=== PATIENT | male | born 1955 | race Hispanic/Latino ===

== ENCOUNTER → 2018-04-04 | Day surgery (SDC) | payer BC ==
[~2018-04-04] MED LIST: AMLODIPINE BESY10 MG PO; CRESTOR10 MG PO; FENTANYL CITRATE/PF 100MCG/2 ML INJ ONE; FINASTERIDE5 MG PO; LIDOCAINE HCL 2% LOCAL INJ 5 ML SDV VIAL INJ ONE; LISINOPRIL40 MG PO; METOPROLOL SUC100 MG PO; PROPOFOL IV EMULSION 10 MG/ML 50 ML VIAL ONE; TERAZOSIN HCL5 MG PO
--- OUTSIDE RECORDS SUMMARY | 2018-04-04 06:27 | XMS REPORT | Clinical Summary ---
Author Author [facility] Organization [facility] Address Unknown Phone Unavailable Care Team Providers Care Patient Services Manager Name Role Phone Jin Quiroz MD PCP Allergies No Known Allergies Medications End Date Status Medication Sig Dispensed Refills Start Date Active furosemide (LASIX) 20 mg Take 20 mg by 3 tablet mouth daily. 7 01/16/2019 Active amLODIPine (NORVASC) 10 Take 1 tablet 90 tablet 3 mg tablet (10 mg total) 8 by mouth daily. Active metoprolol tartrate TAKE ONE 180 tablet 3 (LOPRESSOR) 100 mg tablet TABLET BY 8 MOUTH TWICE DAILY Active aspirin (ECOTRIN) 81 MG Take 81 mg by 0 enteric coated tablet mouth daily. Active terazosin (HYTRIN) 5 MG Take 1 90 capsule 3 capsule capsule (5 mg 8 total) by mouth nightly. 03/12/2019 Active lisinopril Take 1 tablet 90 tablet 3 (PRINIVIL,ZESTRIL) 40 mg (40 mg total) 8 tablet by mouth daily. 03/12/2019 Active rosuvastatin (CRESTOR) 20 Take 1 tablet 90 tablet 3 MG tablet (20 mg total) 8 by mouth daily. 03/12/2019 Active finasteride (PROSCAR) 5 Take 1 tablet 90 tablet 3 mg tablet (5 mg total) 8 by mouth daily. 09/11/2017 Discontinued vit,anel Take by mouth 0 28-zyir-cfaik ( daily. Take 1 LOW IRON) 27 mg iron- 1 capsule daily mg tablet 01/16/2018 Discontinued amLODIPine (NORVASC) 10 Take 1 tablet 90 tablet 3 mg tablet (10 mg total) 7 by mouth daily. 03/12/2018 Discontinued apixaban (ELIQUIS) 5 mg Take 1 tablet 180 tablet 3 tablet (5 mg total) 7 by mouth 2 (two) times a day. 03/11/2018 Discontinued finasteride (PROSCAR) 5 Take 1 tablet 90 tablet 3 mg tablet (5 mg total) 7 by mouth daily. 03/11/2018 Discontinued lisinopril Take 1 tablet 90 tablet 3 (PRINIVIL,ZESTRIL) 40 mg (40 mg total) 7 tablet by mouth daily. Take 1 tablet daily 09/23/2017 Discontinued lovastatin (MEVACOR) 20 Take 1 tablet 90 tablet 3 MG tablet (20 mg total) 7 by mouth nightly. Take 1 tablet daily 02/27/2018 potassium chloride Take 1 tablet 90 tablet 3 (K-DUR) 20 MEQ CR tablet (20 mEq 7 total) by mouth daily. 03/12/2018 Discontinued terazosin (HYTRIN) 5 MG Take 1 90 capsule 3 capsule capsule (5 mg 7 total) by mouth nightly. 03/05/2018 Discontinued metoprolol tartrate Take 1 tablet 180 tablet 3 (LOPRESSOR) 100 mg tablet (100 mg 7 total) by mouth 2 (two) times a day. Take 1 tablet 2 times daily 09/11/2017 Discontinued furosemide (LASIX) 20 mg TAKE ONE 30 tablet 3 tablet TABLET BY 8 MOUTH ONCE DAILY 03/12/2018 Discontinued lovastatin (MEVACOR) 20 Take 20 mg by 0 MG tablet mouth nightly. 03/12/2018 Discontinued finasteride (PROSCAR) 5 TAKE ONE 30 tablet 11 mg tablet TABLET BY 8 MOUTH ONCE DAILY 03/12/2018 Discontinued lisinopril TAKE ONE 30 tablet 11 (PRINIVIL,ZESTRIL) 40 mg TABLET BY 8 tablet MOUTH ONCE DAILY 03/12/2018 Discontinued potassium chloride Take 10 mEq 0 (KLOR-CON) 10 MEQ CR by mouth tablet daily. Active Problems Problem Noted Date Tibialis tendinitis of left lower extremity 12/19/2016 Left ankle swelling 12/12/2016 Last Assessment & Plan: Xray today. Range of motion preserved. May need ortho as has not resolved for few weeks now. Chronic diastolic congestive heart failure 10/05/2016 Last Assessment & Plan: Likely in the setting of Dissection and now post up. Mildly depressed LVEF. Meds as above. Follow up in 3 weeks, Starting cardiac rehab soon. Epistaxis 10/05/2016 Last Assessment & Plan: Observe for now. Advised not to put kleenex inside the nose just hold pressure. Acute respiratory insufficiency 08/09/2016 Hypercapnia with mixed acid-base disorder 08/09/2016 Hyperglycemia 08/09/2016 Electrolyte abnormality 08/09/2016 Leukemoid reaction 08/09/2016 Postoperative anemia due to acute blood loss 08/09/2016 Last Assessment & Plan: Stable. s/p AVR with Trifecta VAlve 08/09/2016 Last Assessment & Plan: Normal velocity and gradient across the prosthetic valve. s/p Ascending aortic dissecting aneurysm repair 08/09/2016 Atrial fibrillation status post cardioversion 08/09/2016 Last Assessment & Plan: Cardioversions were unsuccessful by reports. However currently in NSR. Discontinue Amio . Will monitor. - Continue apixaban . Essential hypertension 08/08/2016 Last Assessment & Plan: Uncontrolled. Better than last time Cont home logs. Reviewed for this visit Metoprolol was increased to 100 bid by PCP Amlodipine to 10 mg Lasix 40 mg daily . Resume lovastatin Pure hypercholesterolemia 08/08/2016 Benign prostatic hyperplasia with lower urinary tract symptoms 08/08/2016 Dissecting aneurysm of thoracic aorta, [place] type A 08/08/2016 Last Assessment & Plan: Recovering well, Coronaries were not checked before OR since emergency. 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 (HCC); Atrial fibrillation status post cardioversion (HCC); Chronic diastolic congestive heart failure (HCC) 03/12/2018 Office Visit Cardiology Juany Jennings MD Med Refill 03/11/2018 Refill Cardiology Juany Jennings MD Med Refill 03/05/2018 Refill Cardiology Juany Jennings MD Pritchard, Sherry M, RD Pure hypercholesterolemia (Primary Dx); Class 3 severe obesity due to excess calories with body mass index (BMI) of 45.0 to 49.9 in adult, unspecified whether serious comorbidity present (HCC) 01/16/2018 Consult Weight Management Price, Amber, MA Med Refill 01/16/2018 Refill Cardiology Amber Thrasher MA Results 10/30/2017 Telephone Cardiology Juany Jennings MD 10/25/2017 Orders Only Cardiology Juany Jennings MD 09/23/2017 Orders Only Cardiology Juany Jennings MD 09/18/2017 Orders Only Cardiology Juany Jennings MD Coronary artery disease involving tanana coronary artery of tanana heart without angina pectoris (Primary Dx); Dissecting aneurysm of thoracic aorta, [place]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; s/p AVR with Trifecta VAlve; Atrial fibrillation status post cardioversion 09/11/2017 Office Visit Cardiology Danette Roberto MA Chronic combined systolic and diastolic heart failure (Primary Dx) 08/07/2017 Orders Only Cardiology after 04/03/2017 Family History Medical History Relation Name Comments Heart disease Mother Relation Name Status Comments Mother Social History Date Tobacco Use Types Packs/Day Years Used Never Smoker Smokeless Tobacco: Never Used Tobacco Cessation: Counseling Given: No Alcohol Use Drinks/Week oz/Week Comments Yes Occasional Sex Assigned at Date Recorded Not on file Industry Job Start Date Occupation Not on file Not on file Not on file Travel End Travel History Travel Start No recent travel history available. Last Filed Vital Signs Time Taken Vital Sign Reading 03/12/2018 9:42 AM [facility] Blood Pressure 140/80 03/12/2018 9:42 AM [facility] MAN Pulse 60 03/12/2018 9:42 AM [facility] MAN Temperature 36.6 C (97.8 F) - Respiratory Rate - 03/12/2018 9:42 AM [facility] MAN Oxygen Saturation 96% - Inhaled Oxygen - Concentration 03/12/2018 9:42 AM FRONT MAN Weight 137 kg (303 lb) 03/12/2018 9:42 AM FRONT MAN Height 170.2 cm (5' 7") 03/12/2018 9:42 AM FR[facility] MAN Body Mass Index 47.46 Plan of Treatment Care Team Description [place] [address] [place] [address], [address] [place] [address] [phone] 09/10/2018 Office Visit Cardiology Health Maintenance Due Date Last Done Comments COLON CANCER SCREENING 06/23/2005 SHINGLES VACCINES (1 of 06/23/2005 2) INFLUENZA VACCINE 10/24/2017 Implants Device Identifier Shelf Expiration Date Model / Serial / Lot Implanted Type Area Manufactur er 02/22/2018 [id number] / / Lead Pace Ramy Mycrdl Unipol Tmpry Cardiovasc N/A: N/A MED[employer] Streamline - [id number] ar [facility] - Implanted: Qty: 1 on 08/08/2016 by Implants CARDIAC Yassine White MD SRGRY 02/22/2018 [id number] / / Lead Pace Ramy Mycrdl Unipol Tmpry Cardiovasc N/A: N/A MEDTRON[employer] Streamline - [id number] ar [facility] - Implanted: Qty: 1 on 08/08/2016 by Implants CARDIAC Yassine White MD SRGRY 04/17/2020 TFGT 25A / [id number] / [id number] Valve Aortic Hemo Peric Tiss Cardiovasc N/A: N/A ST KIKI W/[place] Tech Cuff 25mm Trifecta - ular STRUCTURAL [id number] Implants HEART Implanted: 08/08/2016 (Quantity not on file) 04/22/2017 [id number] / / [id number] Fibrin Sealant Patch Evarrest - Surgical N/A: N/A ETHICON [id number] Implants; ENDO-SURGE Implanted: 08/09/2016 (Quantity not Expanders; RY on file) Extenders; Surgical Wires 06/20/2020 [id number] / / [place] Perph Vasclr Ptfe [id number] Vascular N/A: N/A BARD 1.65mm - [id number] Graft PERIPHERAL Implanted: Qty: 1 on 08/08/2016 by VASCULAR Yassine White MD 02/22/2021 [id number] / / [id number] Graft Vasclr Gelweave Ante-Sunday Vascular N/A: N/A SULZER Perfsn Side [id number] 28x8mm - Graft [id number] Implanted: Qty: 1 on 08/08/2016 by Yassien White MD 12/21/2020 [id number] / / [id number] [place] Perph Vasclr Ptfe 1.2x10cm Vascular N/A: N/A BARD 1.65mm - [id number] Graft PERIPHERAL Implanted: Qty: 1 on 08/08/2016 by Yassine Greenfield MD 02/20/2021 [id number] / / [id number] [place] Perph Vasclr Ptfe 1.2x10cm Vascular N/A: N/A BARD 1.65mm - [id number] Graft PERIPHERAL Implanted: Qty: 1 on 08/08/2016 by Yassine Greenfield MD 09/20/2020 [id number] / / [id number] [place] Perph Vasclr Ptfe 1.2x10cm Vascular N/A: N/A BARD 1.65mm - [id number] Graft PERIPHERAL Implanted: Qty: 1 on 08/08/2016 by Yassine Greenfield MD Procedures Comments Procedure Name Priority Date/Time Associated Diagnosis CV HOLTER MONITOR GREATER Routine 10/25/2017 THAN 48 HOUR HEMOGLOBIN A1C Routine 09/18/2017 7:35 AM CDT TEST IN QUESTION - NO Routine 09/18/2017 TEST FOR CONTAINER 12:00 AM CDT THYROID STIMULATING Routine 09/18/2017 Coronary artery disease HORMONE 12:00 AM CDT involving tanana coronary artery of tanana heart without angina pectoris B NATRIURETIC PEPTIDE Routine 09/18/2017 Coronary artery disease 12:00 AM CDT involving tanana coronary artery of tanana heart without angina pectoris LIPID PANEL Routine 09/18/2017 Coronary artery disease 12:00 AM CDT involving tanana coronary artery of tanana heart without angina pectoris BASIC METABOLIC PANEL Routine 09/18/2017 Coronary artery disease 12:00 AM CDT involving tanana coronary artery of tanana heart without angina pectoris ECHOCARDIOGRAM 2D Routine 08/09/2017 Chronic combined systolic COMPLETE W MMODE SPECTRAL 4:40 PM CDT and diastolic heart COLOR DOPPLER (84531) failure after 04/03/2017 Results * CV Holter monitor greater than 48 hours (10/25/2017) Narrative Performed At * Hemoglobin A1c (09/18/2017 7:35 AM CDT) Hemoglobin A1C 5.6 <5.7 % of total Hgb [facility] Comment: [place] For the purpose of screening for the presence of diabetes: <5.7% Consistent with the absence of diabetes 5.7-6.4%Consistent with increased risk for diabetes (predi abetes) > or=6.5%Consistent with diabetes This assay result is consistent with a decreased risk of diabetes. Currently, no consensus exists regarding use of hemoglobin A1c for diagnosis of diabetes in children. According to [place] Diabetes Association (ADA) guidelines, hemoglobin A1c <7.0% represents optimal control in non- diabetic patients. Different metrics may apply to specific patient populations. Standards of Medical Care in Diabetes(ADA). Narrative Performed At FASTING: UNKNOWN QUEST Resulting Agency Comment Performing Organization Information: Site ID: A Name: [facility] Address: [address] [place] [phone] Director: Lianne Connelly Performing Organization Address City/[facility]/Zipcode Phone Number [employer] [place] [address] * TEST IN QUESTION - NO TEST FOR CONTAINER (09/18/2017 12:00 AM CDT) TEST IN QUESTION - NO Comment: [facility] TEST FOR CONTAINER NO TEST(S) ARE INDICATED ON [place] THE REQUISITION FOR THE FOLLOWING SPECIMEN(S). SPECIMEN(S) RECEIVED: FROZEN LAVEDER [facility] [place] Comment Comment: [facility] To prevent further delays in [place] testing, please complete information above and fax to [phone] to resolve this order. Resulting Agency Comment Performing Organization Information: Site ID: [id number] Name: [facility] Address: [address] [place] [phone] Director: Lianne Connelly Performing Organization Address [facility]/Zipcode Phone Number [employer] [address] [address] * Thyroid stimulating hormone (09/18/2017 12:00 AM CDT) TSH 4.02 0.40 - 4.50 mIU/L [facility] [place] Specimen Blood Resulting Agency Comment Performing Organization Information: Site ID: [id number] Name: [facility] Address: [address] [place] [phone] Director: Lianne Connelly Performing Organization Address [facility] Cent[facility] Phone Number [facility] [place] [address] * B natriuretic peptide (09/18/2017 12:00 AM CDT) BNP 137 (H) <100 pg/mL [facility] Comment: [place] BNP levels increase with age in the general population with the highest values seen in individuals greater than 75 years of age. Reference: J. Am. Jia. Cardiol. 2002; 40:976-982. Specimen Blood Resulting Agency Comment Performing Organization Information: Site ID: [id number] Name: [facility] Address: [address] [place] [phone] Director: Lianne Connelly Performing Organization Address [facility]osc Phone Number [facility] [place] [address] * Lipid panel (09/18/2017 12:00 AM CDT) Cholesterol, total 170 <200 mg/dL [facility] HDL cholesterol 39 (L) >40 mg/dL [facility] [place] Triglycerides 167 (H) <150 mg/dL [facility] [place] LDL cholesterol 103 (H) mg/dL (calc) [facility] calculated Comment: [place] Reference range: <100 Desirable range <100 mg/dL for primary prevention; <70 mg/dL for patients with CHD or diabetic patients with > or=2 CHD risk factors. LDL-C is now calculated using the Itz-Blayne calculation, which is a validated novel method providing better accuracy than the Friedewald equation in the estimation of LDL-C. Itz GOFF et al. ANA. 2013;310(19): 2540-1399 (http://education.[employer].com/faq/BTM564) Cholesterol/HDL ratio 4.4 <5.0 (calc) [facility] [place] Non-HDL cholesterol 131 (H) <130 mg/dL (calc) [facility] Comment: [place] For patients with diabetes plus 1 major ASCVD risk factor, treating to a non-HDL-C goal of <100 mg/dL (LDL-C of <70 mg/dL) is considered a therapeutic option. Specimen Blood Resulting Agency Comment Performing Organization Information: Site ID: [id number] Name: [facility] Address: [address] [place] [phone] Director: Lianne Connelly Performing Organization Address [facility] [place] [address] * Basic metabolic panel (09/18/2017 12:00 AM CDT) Glucose 88 65 - 99 mg/dL [facility] Comment: [place] Fasting reference interval BUN, whole blood 14 7 - 25 mg/dL [facility] [place] Creatinine 0.79 0.70 - 1.25 mg/dL [facility] Comment: [place] For patients >49 years of age, the reference limit for Creatinine is approximately 13% higher for people identified as -[place]. EGFR Non-Afr. [place] 96 > OR=60 mL/min/1.73m2 [facility] [place] EGFR 112 > OR=60 mL/min/1.73m2 [facility] [place] BUN/creatinine ratio NOT APPLICABLE 6 - 22 (calc) [facility] Sodium 143 135 - 146 mmol/L [facility] [place] Potassium 3.8 3.5 - 5.3 mmol/L [facility] [place] Chloride 105 98 - 110 mmol/L [facility] [place] CO2 29 20 - 31 mmol/L [facility] [place] Calcium 8.9 8.6 - 10.3 mg/dL [facility] [place] Specimen Blood Resulting Agency Comment Performing Organization Information: Site ID: RGA Name: [facility] Address: [address] [place] [phone] Director: Lianne Connelly Performing Organization Address [facility] [place] [address] * Echocardiogram complete w contrast and 3D if needed (08/09/2017 4:40 PM CDT) Ao Root Diameter 3.99 cm [facility] BSA Morse 2.55 m2 [facility] BSA 2.33 m2 [facility] IVS,d 1.56 (A) 0.6 - 1.2 cm [facility] IVS/LVPW,2D 1.08 [facility] Left Atrium Dimension 5.72 cm [facility] Anterior LV,d 5.23 cm [facility] LV EF,2D 64.73 % [facility] LV,s 3.70 cm [facility] LVOT area 3.83 cm2 [facility] LVOT Diam,S 2.21 cm [facility] LVOT Vmax 0.82 m/s [facility] LVOT VTI 0.21 m [facility] LVPWD,d 1.44 cm [facility] MV E A ratio 1.00 mmHg [facility] BMI 46.00 kg/m2 [facility] E wave decelartion time 298.75 msec [facility] Pulm vein S/D ratio 1.14 [facility] MV Peak A Jose R 0.96 m/s [facility] MV valve area p 1/2 2.54 cm2 [facility] method MV Peak E Jose R 0.96 m/s [facility] MV stenosis pressure 1/2 86.64 ms [facility] time PV Peak S Jose R 55.49 m/s [facility] PV Peak D Jose R 48.64 m/s [facility] AV LVOT peak gradient 2.70 mmHg [facility] Ao Root Diameter 3.99 cm [facility] LV SYS VOL 58.08 ml [facility] LV GREEN VOL 131.53 ml [facility] LA area s A4C 29.43 cm2 [facility] LV SI Teich 2D 31.59 ml/m2 [facility] LV SV Teich 2D 73.45 ml [facility] LV Vol s Teich PSAX 58.08 ml [facility] LVOT CI 1.97 l/min/m2 [facility] LVOT CO 4.58 l/min [facility] LVOT HR for LVOT CO 55.81 bpm [facility] LVOT SI 35.29 ml/m2 [facility] BSA Haycock 2.53 m2 [facility] IVS s 2D 1.79 [facility] LV FS Teich 2D 29.35 [facility] MV AE ratio 1.00 [facility] LV FS Cube 2D 29.35 [facility] LVOT Vmn 0.58 [facility] Pt Size 167.64 [facility] Pt Wt 129.27 [facility] LVOT mean grad 1.57 mmHg [facility] IVS pct thck PLAX 14.45 % [facility] LV SI Cube 2D 39.94 ml/m2 [facility] LV SV Cube 2D 92.86 ml [facility] LV vol d cube 2D 143.46 ml [facility] LV vol s cube 2D 50.60 ml [facility] LVPW pct thck PLAX 50.16 % [facility] LVPW s PLAX 2.16 cm [facility] MV Decel slope 3.23 m/s2 [facility] PulmV Green Jos Er 48.64 cm/s [facility] PulmV S D Jose R 1.14 [facility] PulmV Sys Jose R 55.49 cm/s [facility] PulmV A Revs Jose R 31.36 % [facility] LA Vol MOD A4C 103.90 ml [facility] EF 55.84 % [facility] E/A ratio 1.00 [facility] Narrative Performed At [facility] The left ventricular chamber size is normal. Left ventricular systolic function is normal. Left Ventricular ejection fraction is 60 - 65 Prosthretic AV is not well see. The velocity/gradient through the prosthetic aortic valve is within normal limits. Compared to echoardiogram in 08/2016- LVEF has improved Performing Organization Address City/State/[facility] Centercode Phone Number [facility] [phone] [place] [address] after 04/03/2017 Insurance Payer Benefit Subscriber ID Type Phone Address Plan / Group BCBS BCBS xxxxxxxxxxxx PPO CHOICE PPO/FEDERA L EMPL PPO Advance Directives Patient has advance care planning documents on file. For more information, medina e contact: Rufino Ramirez [address] [place] [address]
[2018-04-04 08:55] VITALS: BP 104/58
--- NOTE | 2018-04-04 09:05 | Operative Report ---
DATE OF PROCEDURE: April 04, 2018 PROCEDURE PERFORMED: Colonoscopy. PREOPERATIVE DIAGNOSIS: History of colon polyps. POSTOPERATIVE DIAGNOSIS: Colon polyps. PREOPERATIVE MEDICATIONS: Consisted of TIVA anesthesia. Using the Olympus Aquapdesigns video colonoscope, it was inserted into the patient's rectum and advanced without difficulty to the level of the cecum. The colonoscope was withdrawn from level back down to the rectum. There was a 3-4 mm size polyp in the ascending colon, which was removed with hot biopsy forceps. There was two 2-3 mm size polyps in the sigmoid, and two 2-3 mm size polyps in the rectum. All 4 were removed with the hot biopsy forceps. There was a little bit of granulation tissue noticed as we entered the anal canal. This was biopsied to make sure there was no disease process present. The colonoscope was withdrawn from the patient's rectum, and the procedure was ended. In conclusion, we have findings of 5 small polyps, which were removed with the hot biopsy forceps. Job#: [id number]
== END | disposition home or self-care (01) ==
LOC: OR 06:24
PROVIDERS: ATTEND Internal Medicine Gastroenterology
DX: Z09 Encounter for follow-up examination after completed treatment for conditions other than malignant neoplasm (principal); K63.5 Polyp of colon; K62.1 Rectal polyp; K76.0 Fatty (change of) liver, not elsewhere classified; G47.33 Obstructive sleep apnea (adult) (pediatric); I10 Essential (primary) hypertension; E78.5 Hyperlipidemia, unspecified; I45.10 Unspecified right bundle-branch block; F41.9 Anxiety disorder, unspecified; Z01.810 Encounter for preprocedural cardiovascular examination; Z79.82 Long term (current) use of aspirin; Z68.42 Body mass index [BMI] 45.0-49.9, adult; Z95.2 Presence of prosthetic heart valve; Z80.0 Family history of malignant neoplasm of digestive organs
CPT/HCPCS: 45380; 45384; 93005; J2001